=== PATIENT | male | born 1975 | race Caucasian/White ===

== ENCOUNTER 2018-06-09 18:48 | Emergency (ER) | payer BC ==
[2018-06-09 19:32] VITALS: TEMP 98.2
[2018-06-09] MEDS ORDERED: KETOROLAC 60 MG/2 ML VIAL IM STA (20:31)
--- NOTE | 2018-06-09 20:41 | ED ---
Back Pain HPI - General Chief Complaint: Back Pain/Injury Stated Complaint: herniated disc Time Seen by Provider: 06/09/18 20:23 Source: patient, RN notes reviewed Limitations: no limitations - History of Present Illness Initial Comments: This is a 42-year-old male presents emergency Department with chief complaint of back pain. Patient states he has a known herniated disc at L4-L5 and sees Dr. [facility] Patient states that he is walking back to his house and felt a sudden onset of a pop in his back. He states ever since worse pain. He denies any bowel bladder incontinence or retention. Denies any saddle anesthesias, lower extremity paresthesias or any pain rates on his leg. Patient is currently Dr. Carrion has him on tramadol daily for the pain. Patient states that he gets the relief of his symptoms at this time when laying flat. - Related Data Previous Rx's Medication Instructions Recorded Cyclobenzaprine [Flexeril] 10 mg PO TID PRN #15 tab 06/09/18 predniSONE 50 mg PO DAILY #5 tab 06/09/18 Allergies Allergy/AdvReac Type Severity Reaction Status Date / Time No Known Allergies Allergy Verified 06/09/18 19:31 Review of Systems ROS Statement: Those systems with pertinent positive or pertinent negative responses have been documented in the HPI. ROS Other: All systems not noted in ROS Statement are negative. Past Medical History Additional Past Medical History / Comment(s): Herniated disc History of Any Multi-Drug Resistant Organisms: None Reported Past Surgical History: No Surgical Hx Reported Past Psychological History: No Psychological Hx Reported Smoking Status: Former smoker Past Alcohol Use History: None Reported Past Drug Use History: None Reported General Exam Limitations: no limitations General appearance: alert, in no apparent distress Neck exam: Present: normal inspection, full ROM. Absent: tenderness, meningismus, lymphadenopathy Respiratory exam: Present: normal lung sounds bilaterally. Absent: respiratory distress, wheezes, rales, rhonchi, stridor Cardiovascular Exam: Present: regular rate, normal rhythm, normal heart sounds. Absent: systolic murmur, diastolic murmur, rubs, gallop, clicks GI/Abdominal exam: Present: soft, normal bowel sounds. Absent: distended, tenderness, guarding, rebound, rigid Back exam: Present: full ROM (Moderate discomfort), tenderness (Minimal lumbar) , paraspinal tenderness. Absent: CVA tenderness (R), CVA tenderness (L), vertebral tenderness Neurological exam: Present: reflexes normal. Absent: motor sensory deficit Skin exam: Present: warm, dry, intact, normal color. Absent: rash Course Vital Signs 06/09/18 19:28 Temperature 98.2 F Pulse Rate 81 Respiratory 18 Rate Blood Pressure 130/82 O2 Sat by Pulse 99 Oximetry Medical Decision Making - Medical Decision Making 42-year-old male presented for back pain. There is no acute fracture or malalignment on x-ray. Patient will follow-up with his back specialist. Patient was started on steroids, muscle relaxers. Return parameters were discussed. Disposition Clinical Impression: Acute exacerbation of chronic low back pain Disposition: HOME SELF-CARE Condition: Stable Instructions: Acute Low Back Pain (ED) Additional Instructions: Please return to the Emergency Department if symptoms worsen or any other concerns. Prescriptions: Cyclobenzaprine [Flexeril] 10 mg PO TID PRN #15 tab PRN Reason: Muscle Spasm predniSONE 50 mg PO DAILY #5 tab Is patient prescribed a controlled substance at d/c from ED?: No Referrals: Venkata Chavez MD [Primary Care Provider] - 1-2 days Long Carrion MD [STAFF PHYSICIAN] - 1-2 days Time of Disposition: 21:51
--- NOTE | 2018-06-09 21:41 | XR ---
EXAMINATION TYPE: XR lumbar spine 2 or 3V DATE OF EXAM: 06/09/2018 COMPARISON: 03/26/2015 HISTORY: Pain TECHNIQUE: Three-view lumbar spine FINDINGS: There 5 lumbar-type vertebral bodies. Pedicles are intact. Disc heights are preserved. Vert ebral body heights are preserved. IMPRESSION: 1. Normal three-view lumbar spine.
[2018-06-09 21:59] VITALS: BP 130/86; PULSE 66; RESP 16
== END 2018-06-09 21:59 | disposition home or self-care (01) ==
LOC: EC 18:48
DX: M54.5 Low back pain (principal); G89.29 Other chronic pain; M51.26 Other intervertebral disc displacement, lumbar region; Z87.891 Personal history of nicotine dependence; X50.1XXA Overexertion from prolonged static or awkward postures, initial encounter; Y93.01 Activity, walking, marching and hiking
CPT/HCPCS: 72100; 99283; 96372; J1885

== ENCOUNTER 2018-12-06 07:54 | Day surgery (SDC) | payer BC ==
[2018-12-05 08:34] VITALS: BMI 25.0
[~2018-12-06 07:54] MED LIST: LACTATED RINGERS 1,000 ML IV SCH; LIDOCAINE 1% 20 ML VIAL (10MG/ML) FOR IV START INTRADERMA PRN
[2018-12-06 08:36] VITALS: RESP 16; TEMP 98.1
[2018-12-06] MEDS ORDERED: PROPOFOL 10 MG/ML 20 ML VIAL IV ONE (09:27)
--- NOTE | 2018-12-06 09:56 | P.PCN ---
Date of Procedure: 12/06/18 Procedure(s) Performed: Procedure: Colonoscopy and biopsy. Preoperative diagnosis: Blood in the stools and change in bowel habits. Postoperative diagnosis: 1. Exam of the colon and terminal ileum within normal limits without evidence of inflammatory bowel disease. 2. Biopsies obtained from the terminal ileum and right colon. 3. Diminutive polyp around the splenic flexure biopsy. 4. Low-grade internal hemorrhoids not bleeding at the time of this exam. Preparation: HalfLytely prep. Sedation: Was provided by anesthesia. Clinical history: The patient is a 43-year-old male who is scheduled for this evaluation because of change in bowel habits with frequent loose stools for the last 2 months or so and more recent onset of episodes of blood in his stools. There is no family history of colon cancer or inflammatory bowel disease. He had no prior colonoscopy. This evaluation is to assess for inflammatory bowel disease, neoplasia or other pathology. Procedure: With the patient on his left lateral decubitus position and after informed consent and adequate sedation, the perianal area was inspected and it did not show any fissures or fistulas. There were no masses felt on digital rectal examination. The Olympus CFH 190L video colonoscope was then inserted in the rectum in the usual fashion and advanced to the cecum. I intubated the ileocecal valve and examined the terminal ileum as well. Terminal ileum and colon appeared healthy with no edema, erythema, friability, ulceration, exudation or spontaneous bleeding. There was a diminutive polyp around the splenic flexure which I biopsied but there were no large polyps or cancer. I also obtained biopsies from the right colon and terminal ileum. I retroflexed the endoscope in the rectum before the endoscope was withdrawn. Low-grade internal hemorrhoids were noted with no evidence of bleeding. The patient tolerated the procedure well. Plan: The patient was reassured. Discussed dietary measures and local care for hemorrhoids. He will follow up with you as planned and I anticipate repeating this exam in around 5 years.
[2018-12-06 10:18] VITALS: BP 117/73; PULSE 86
== END 2018-12-06 10:42 | disposition home or self-care (01) ==
LOC: ORWHC2ENDO 07:54
DX: D12.3 Benign neoplasm of transverse colon (principal); K64.8 Other hemorrhoids; F17.210 Nicotine dependence, cigarettes, uncomplicated
CPT/HCPCS: 88305; 45380; J2704

== ENCOUNTER → 2020-06-19 | Outpatient (CLI) | payer BC ==
[2020-06-20 00:33] LABS: T4, Free (Free Thyroxine) 1.3 ng/dL (0.80-1.80)
== END | disposition home or self-care (01) ==
LOC: LABWHC1 14:55
PROVIDERS: ATTEND Internal Medicine Interventional Cardiology
DX: R00.2 Palpitations (principal)
CPT/HCPCS: 36415; 84439; 84443